=== PATIENT | male | born 1945 | race Caucasian/White ===

== ENCOUNTER 2017-08-01 15:19 | Emergency (ER) | payer OTHER ==
--- NOTE | 2017-08-01 15:33 | ED GI/GU/ABDOMINAL COMPLAINT ---
History of Present Illness General Chief Complaint: General Adult Stated Complaint: CATHETER PAIN Source: patient, family, EMS Exam Limitations: no limitations Vital Signs & Intake/Output Vital Signs & Intake/Output Vital Signs Date Time Temp Pulse Resp B/P B/P Pulse O2 O2 Flow FiO2 Mean Ox Delivery Rate 08/01 1739 87 18 132/78 99 Room Air 08/01 1548 Room Air 08/01 1523 98.7 79 22 165/69 97 Room Air Reconcile Medications Ciprofloxacin HCl (Cipro) 500 MG TABLET 1 TAB PO BID uti Triage Note: PT BIBA FROM CAR R/T INCREASED URINARY CATHETER PAIN AND ANXIETY. PT'S REPORTS THAT [facility]ED[facility] HE BEGAN TO EXPERIENCE DECREASED URINE OUTPUT WELL PAIN AT INSERTION. PT WITH HX OF DEMENTIA AND ASSOCIATED ANXIETY BECOMING MORE ANXIOUS R/T PAIN WAS EN ROUTE TO [facility] WITH HIS WHEN HE ASKED TO INTERACTIVE MEDIA MARKETING DIRECTOR AND CALL [facility] BECAUSE HE COULDN'T TAKE PAIN ANY MORE. PT HYPERTENSIVE 190s AND TACHYCARDIC 110s EN ROUTE. SOMEWHAT LOWER ON ARRIVAL. PT TACHNEIPIC ANXIOUS Triage Nurses Notes Reviewed? yes Onset: Gradual Duration: hour(s): Timing: single episode today Quality/Severity: moderate Location: urethral Radiation: chest HPI: 72yo male with hx of dementia BIBA complaining of pain at catheter site beginning today after lunch. Patient describes pain as radiating from urethra to chest. He states he tried to urinate however was unable to pass urine. changed the patient's Darden bag around 10 AM, she has not changed bag since then , bag is currently empty. Patient is scheduled to have prostate surgery tomorrow [facility] with his urologist. He has not had any issues with his Darden until today. No recent antibiotics use. tried to drive the patient [facility] today however he was in too much pain to make it there so they called an ambulance to come here. Patient denies fevers, chills, vomiting, testicular pain. (Ju Goins) Past History Medical History Any Pertinent Medical History? see below for history Neurological: dementia Surgical History Surgical History: non-contributory Family History Hx Contributory? No (Ju Goins) Review of Systems Review of Systems Constitutional: Reports: no symptoms. EENTM: Reports: no symptoms. Respiratory: Reports: no symptoms. Cardiovascular: Reports: no symptoms. GI: Reports: no symptoms. Genitourinary: Reports: see HPI. Musculoskeletal: Reports: no symptoms. Skin: Reports: no symptoms. Neurological/Psychological: Reports: no symptoms. Hematologic/Endocrine: Reports: no symptoms. Immunologic/Allergic: Reports: no symptoms. All Other Systems: Reviewed and Negative (Danielle YANEZ,Ju Garcia) Physical Exam Physical Exam General Appearance: well developed/nourished, no apparent distress, alert, awake Head: atraumatic, normal appearance Eyes: Bilateral: normal appearance. Ears, Nose, Throat, Mouth: hearing grossly normal Neck: normal inspection, supple, full range of motion Respiratory: normal breath sounds, no respiratory distress, lungs clear Cardiovascular: regular rate/rhythm Gastrointestinal: normal bowel sounds, soft, no organomegaly, suprapubic tenderness Male Genitals: normal genitalia Back: normal inspection, normal range of motion Extremities: normal range of motion Neurologic/Psych: awake, alert, oriented x 3 Skin: intact, normal color, warm/dry Core Measures ACS in differential dx? No Sepsis Present: No Sepsis Focused Exam Completed? No (Danielle YANEZ,Ju Garcia) Progress Differential Diagnosis: prostatitis, ureterolithiasis, urinary retention, urethritis, UTI/pyelo Plan of Care: Orders Procedure Date/time Status EKG 08/01 1720 Active TROPONIN LEVEL 08/01 1613 Complete COMPREHENSIVE METABOLIC PANEL 08/01 1613 Complete CBC WITHOUT DIFFERENTIAL 08/01 1613 Complete EKG 08/01 1613 Active URINALYSIS 08/01 1534 Complete Laboratory Tests 08/01/17 1715: Urine Color YEL, Urine Clarity CLDY H, Urine pH 8.0, Ur Specific [place] 1.020, Urine Protein TRACE H, Urine Ketones 15 H, Urine Nitrite POS H, Urine Bilirubin NEG, Urine Urobilinogen 0.2, Ur Leukocyte Esterase MOD H, Ur Microscopic SEDIMENT EXAMINED, Urine RBC 50-75 H, Urine WBC 10-15 H, Ur Epithelial Cells RARE, Urine Bacteria MOD H, Urine Hemoglobin LARGE H, Urine Glucose NEG 08/01/17 1630: Anion Gap 16, Estimated GFR > 60, BUN/Creatinine Ratio 22.0, Glucose 105 H, Calcium 10.4 H, Total Bilirubin 2.4 H, AST 19, ALT 24, Alkaline Phosphatase 75 , Troponin I 0.01, Total Protein 7.0, Albumin 4.5, Globulin 2.5, Albumin/ Globulin Ratio 1.8, CBC w Diff NO MAN DIFF REQ, RBC 5.22, MCV 90.7, MCH 31.2 H, MCHC 34.5, RDW 14.1, MPV 7.7, Gran % 76.9 H, Lymphocytes % 15.9 L, Monocytes % 6.6, Eosinophils % 0.3, Basophils % 0.3, Absolute Granulocytes 7.2 H, Absolute Lymphocytes 1.5, Absolute Monocytes 0.6, Absolute Eosinophils 0, Absolute Basophils 0 Flush was attempted however no urine output from Darden. Bladder scan shows greater than 200 mL urine. Patient's Darden catheter was exchanged and patient had good flow of large volume urine from catheter. Patient reports significant improvement in his symptoms following catheter placement. Labs pending. Labs show elevated total bilirubin however normal liver enzymes and alkaline phosphatase. Repeat abdominal exam is without tenderness. Given these findings no CT imaging ordered as patient's symptoms likely related to urinary retention. Urine shows possibility of UTI, we will initiate Cipro and have patient follow- up with his doctor tomorrow as scheduled, patient given copy of his labs to discuss with his urologist. Initial EKG shows artifact that distorts study, repeat EKG in sinus rhythm. Patient in no acute distress, nontoxic appearing, vital signs are stable. The patient and his agree with the plan of care. The patient was discussed with Dr. Lemos who agrees with the plan of care. Initial ED EKG: INITIAL: ARTIFACT PRESENT REPEAT: SINUS RHYTHM @77BPM, FIRST DEGREE AV BLOCK (Danielle YANEZ,Ju Garcia) Departure Departure Disposition: HOME OR SELF CARE Condition: Stable Clinical Impression Primary Impression: Urinary retention Secondary Impressions: Darden catheter problem Qualifiers: Encounter type: initial encounter Qualified Code: T83.9XXA - Unspecified complication of genitourinary prosthetic device, implant and graft, initial encounter UTI (urinary tract infection) Qualifiers: Urinary tract infection type: site unspecified Hematuria presence: with hematuria Qualified Codes: N39.0 - Urinary tract infection, site not specified; R31.9 - Hematuria, unspecified Additional Instructions: Follow-up with your doctor tomorrow. Continue antibiotics, discuss results of today's visit with your doctor. Return with any worsening symptoms or concerns including further urinary retention, abdominal pain, fevers. Please note that there might be incidental findings in your evaluation that are unrelated to the current emergency department visit. Please notify your primary care doctor about this emergency department visit in order to obtain and review all of the testing performed so that these incidental findings can be monitored as needed. If you had an x-ray performed, please understand that some fractures may not be seen on the initial set of x-rays. If your symptoms persist you might need a repeat set of x-rays to check for such a fracture. If you had a laceration evaluated, please understand that foreign bodies such as glass or wood may not be visible to the naked eye or on plain x-rays. If the wound becomes red, swollen, increasingly more painful or if there is any drainage from the wound, please have it reevaluated by a physician for the possibility of a retained foreign body. If you're unable to follow up as outlined in the discharge instructions please return to the emergency department. Thank you for choosing the [facility] Emergency Department for your care. It was a pleasure to serve you today. Departure Forms: Customer Survey General Discharge Information Prescriptions: Current Visit Scripts Ciprofloxacin HCl (Cipro) 1 TAB PO BID #14 TAB (Danielle YANEZ,Ju Garcia) PA/DATA CONVERSION OPERATOR Co-Sign Statement Statement: ED Attending supervision documentation- X I saw and evaluated the patient. I have also reviewed all the pertinent lab results and diagnostic results. I agree with the findings and the plan of care as documented in the PA's/DATA CONVERSION OPERATOR's documentation. [] I have reviewed the ED Record and agree with the PA's/DATA CONVERSION OPERATOR's documentation. [] Additions or exceptions (if any) to the PAs/DATA CONVERSION OPERATOR's note and plan are summarized below: [] (Aminta RUTHERFORD,Iker)
[2017-08-01 16:38] LABS: ABSOLUTE BASOPHIL COUNT 0 /CUMM (0.0-0.2); ABSOLUTE EOSINOPHIL COUNT 0 /CUMM (0.0-0.7); ABSOLUTE GRANULOCYTE CT 7.2 /CUMM (1.4-6.5); ABSOLUTE LYMPH COUNT 1.5 /CUMM (1.2-3.4); ABSOLUTE MONOCYTE COUNT 0.6 /CUMM (0.10-0.60); BASOPHIL % 0.3 % (0.0-2.0); EOSINOPHIL % 0.3 % (0-5); GRANULOCYTE % 76.9 % (42.2-75.2); HEMATOCRIT 47.3 % (42-52); MEAN CORPUSCULAR HGB 31.2 PG (27.0-31.0); MEAN CORPUSCULAR HGB CONC 34.5 G/DL (33.0-37.0); MEAN CORPUSCULAR VOLUME 90.7 FL (80.0-94.0); MEAN PLATELET VOLUME 7.7 FL (7.4-10.4); PLATELET COUNT 273 /CUMM (130-400); RBC DISTRIBUTION WIDTH 14.1 % (11.5-14.5); RED BLOOD CELL CT 5.22 /CUMM (4.70-6.10); WHITE BLOOD CELL COUNT 9.4 /CUMM (4.8-10.8)
[2017-08-01 17:39] VITALS: BP 132/78
[2017-08-01] MEDS ORDERED: CIPRO500 M1 PO (18:02)
== END 2017-08-01 18:25 ==
LOC: ERH 15:19
PROVIDERS: Physician Assistant
DX: R33.9 Retention of urine, unspecified (principal); N39.0 Urinary tract infection, site not specified; T83.098A Other mechanical complication of other urinary catheter, initial encounter
CPT/HCPCS: 81001; 93005; 93010